=== PATIENT | female | born 1970 | race Hispanic/Latino ===

== ENCOUNTER 2018-05-05 15:08 | Observation (INO) | payer OTHER ==
[2018-05-05 16:08] LABS: Absolute Lymphocytes (CBC) 2.1 K/uL (0.7-4.9); Absolute Monocytes 0.4 K/uL (0.1-1.3); Absolute Neutrophil 4.6 K/uL (1.8-8.0); Basophils % 0.4 % (0-1.3); Eosinophils % 3.1 % (0-4.4); Lymphocytes % 28.1 % (15.3-44.8); MCH 29.1 pg (27.0-35.0); MCV 86.6 fL (80-100); MPV 8.5 fL (7.6-11.3); Monocytes % 5.5 % (3.3-12.3); RBC Red Blood Cell Count 4.39 M/uL (3.86-4.86)
[2018-05-05] MEDS ORDERED: ASPIRIN 81 MG CHEWABLE TABLET ONE (16:11)
[2018-05-05 16:12] LABS: Protime INR 0.97
[2018-05-05] MEDS ORDERED: NA CHLORIDE 0.9% 1,000 ML ONE (16:12)
[2018-05-05 16:33] LABS: ALT/SGPT 44 U/L (12-78); AST/SGOT 21 U/L (15-37); Albumin 3.6 g/dL (3.4-5.0); Alkaline Phosphatase 75 U/L (45-117); BUN Blood Urea Nitrogen 13 mg/dL (7-18); Bicarbonate 24 mmol/L (21-32); Bilirubin Direct < 0.1 mg/dL (0-0.2); Bilirubin Total 0.3 mg/dL (0.2-1.0); Glucose Level 84 mg/dL (74-106); Lipase 117 U/L (73-393); Magnesium 2.3 mg/dL (1.8-2.4); NT PRO-BNP 27 pg/mL (<125); Potassium 3.7 mmol/L (3.5-5.1); Protein, Total 7.5 g/dL (6.4-8.2); Sodium Level 140 mmol/L (136-145); Troponin (Emerg Dept Use Only) < 0.02 ng/mL (0.0-0.045)
--- NOTE | 2018-05-05 16:48 | RAD REPORT ---
EXAM DESCRIPTION: US - Extrem Venous W Compress Jose - 05/05/2018 4:21 pm CLINICAL HISTORY: PAIN Bilateral leg edema and swelling. COMPARISON: No comparisons TECHNIQUE: Real-time sonographic interrogation of the left and right lower extremity deep venous sys tems was performed. FINDINGS: Normal compressibility, flow augmentation, phasic flow and spontaneous flow is identified in both the left and right lower extremity deep venous systems. IMPRESSION: No sonographic evidence of left or right lower extremity deep venous thrombosis.
--- NOTE | 2018-05-05 17:07 | RAD REPORT ---
EXAM DESCRIPTION: CT - Chest For Pe Angio - 05/05/2018 4:53 pm CLINICAL HISTORY: Chest pain. CHEST PAIN COMPARISON: No comparisons TECHNIQUE: CT angiogram of the pulmonary arteries was performed with MIP. All CT scans are performed using dose optimization technique as appropriate and may include automated exposure control or mA/KV adjustment according to patient size. FINDINGS: No evidence of pulmonary thromboembolism. No acute aortic finding demonstrated. Bilateral ground-glass opacities are present likely representing mild interstitial pulmonary edema. L inear subsegmental atelectasis is present in the lingula. No focal consolidation is present. No significant pericardial or pleural fluid. Deformity of the left thoracic cage is present chronic. IMPRESSION: No evidence of pulmonary thromboembolism. Mild interstitial pulmonary edema.
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
[2018-05-05] MEDS ORDERED: ALPRAZOLAM 0.25 MG TABLET PO PRN (18:15)
[2018-05-05] MEDS ORDERED: MORPHINE 4 MG/ML SYR IV PRN (18:15)
[2018-05-05] MEDS ORDERED: ZOLPIDEM TARTRATE 5 MG TABLET PO PRN (18:15)
[2018-05-05] MEDS ORDERED: IBUPROFEN 400 MG TAB PO PRN (18:15)
[2018-05-05] MEDS: ENOXAPARIN 40 MG/0.4 ML SQ SCH (18:30)
[2018-05-05] MEDS ORDERED: ENOXAPARIN 80 MG/0.8 ML SQ ONE (18:44)
[2018-05-05] MEDS ORDERED: METOPROLOL TAR 25 MG TAB ONE (18:44)
[2018-05-05] MEDS ORDERED: CEFTRIAXONE/SWI 1gm 1 GM/10 ML SYR ONE (18:44)
[2018-05-05] MEDS ORDERED: AZITHROMYCIN 500 MG/250 ML BAG ONE (18:45)
[2018-05-05 18:49] LABS: Urine Blood TRACE (NEG); Urine Glucose NEGATIVE (NEG); Urine Protein NEGATIVE (NEG)
[2018-05-05 19:46] LABS: C-Reactive Protein 4.47 mg/L (<3.00); HDL Cholesterol 36 mg/dL (40-60); LDL Cholesterol, Calculated 98 (<130); Troponin I < 0.02 ng/mL (0.0-0.045)
[2018-05-05 20:25] VITALS: BMI 23.9
[2018-05-05 21:26] VITALS: O2SAT 98
[2018-05-06] MEDS: ACETAMINOPHEN 500 MG TAB PO PRN ×4 (00:47→17:25)
[2018-05-06 04:25] LABS: Absolute Monocytes 0.4 K/uL (0.1-1.3); Absolute Neutrophil 3.7 K/uL (1.8-8.0); Basophils % 0.6 % (0-1.3); Eosinophils % 3.9 % (0-4.4); Hematocrit 35.7 % (36.0-45.0); Lymphocytes % 30.9 % (15.3-44.8); MCH 29.1 pg (27.0-35.0); MCV 85.9 fL (80-100); MPV 8.8 fL (7.6-11.3); Monocytes % 6.8 % (3.3-12.3); RBC Red Blood Cell Count 4.15 M/uL (3.86-4.86)
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
--- NOTE | 2018-05-06 07:52 | EKG ---
Test Date: 2018-05-05 Test Time: 15:31:10 French Professor: ISABELLE MEASUREMENT RESULTS: Intervals: Rate: 65 AR: 138 QRSD: 68 QT: 400 QTc: 416 [place]: P: 30 AR: 138 QRS: 6 T: 26 INTERPRETIVE STATEMENTS: Normal sinus rhythm Normal ECG No previous ECG available for comparison Electronically Signed On 05-06-18 07:51:42 CDT by Matthew Valera
[2018-05-06] MEDS ORDERED: INFLUENZA VACCINE (for 3y+) 0.5 ML DOSE IMVAC ONE (08:00)
[2018-05-06] MEDS: ENOXAPARIN 40 MG/0.4 ML SQ SCH (08:26)
[2018-05-06 09:13] LABS: Rheumatoid Factor NEG (NEG)
[2018-05-06] MEDS ORDERED: REGADENOSON 0.4 MG/5 ML SYR IV ONE (09:25)
--- NOTE | 2018-05-06 10:35 | EKG ---
Test Date: 2018-05-06 Test Time: 01:25:37 [place]: RT MEASUREMENT RESULTS: Intervals: Rate: 55 VT: 148 QRSD: 68 QT: 460 QTc: 440 [place]: P: 41 VT: 148 QRS: 17 T: 29 INTERPRETIVE STATEMENTS: Sinus bradycardia Otherwise normal ECG Compared to ECG 05/05/2018 15:31:10 Sinus rhythm no longer present Electronically Signed On 05-06-18 10:34:39 CDT by Matthew Valera
--- NOTE | 2018-05-06 10:52 | ECHO ---
HEIGHT: 6 ft 4 in WEIGHT: 196 lb 14.4 oz DATE OF STUDY: 05/06/[address]: Goran Camarena MD 2-DIMENSIONAL: YES M.MODE: YES DOPPLER: YES COLOR FLOW: YES TDS: NO PORTABLE: NO DEFINITY: NO BUBBLE STUDY: NO DIAGNOSIS: CHEST PAIN CARDIAC HISTORY: CATHERIZATION: NO SURGERY: NO PROSTHETIC VALVE: NO PACEMAKER: NO MEASUREMENTS (cm) DIASTOLIC (NORMALS) SYSTOLIC (NORMALS) IVSd 0.8 (0.6-1.2) LA Diam 3.0 (1.9-4.0) LVEF 80% LVIDd 3.8 (3.5-5.7) LVIDs 2.0 (2.0-3.5) %FS 48% LVPWd 0.8 (0.6-1.2) Ao Diam 2.7 (2.0-3.7) 2 DIMENSIONAL ASSESSMENT: RIGHT ATRIUM: NORMAL LEFT ATRIUM: NORMAL RIGHT VENTRICLE: NORMAL LEFT VENTRICLE: NORMAL TRICUSPID VALVE: NORMAL MITRAL VALVE: NORMAL PULMONIC VALVE: NORMAL AORTIC VALVE: NORMAL PERICARDIAL EFFUSION: NONE AORTIC ROOT: NORMAL LEFT VENTRICULAR WALL MOTION: DOPPLER/COLOR FLOW: MILD TRICUSPID REGURGITATION. NORMAL RIGHT VENTRICULAR SYSTOLIC PRESSURE. COMMENTS: NORMAL 2D ECHOCARDIOGRAM. MILD TRICUSPID REGURGITATION. TECHNOLOGIST: Jun POTTER
--- NOTE | 2018-05-06 13:18 | RAD REPORT ---
EXAM DESCRIPTION: NM - Rest Stress Cardiac Imaging - 05/06/2018 12:52 pm CLINICAL HISTORY: Chest pain COMPARISON: None. TECHNIQUE: The patient was administered 10.8 mCi of Tc 99m Sestamibi prior to resting SPECT imaging of the heart. The patient was then administered 31.9 mCi of Tc 99m Sestamibi following exercise or ph armacologic stress. Multiplanar SPECT images were reviewed. FINDINGS: The end diastolic volume is 87 ml, the end systolic volume is 32 ml, and the ejection frac tion is 63 %. Physiologic distribution of the radiopharmaceutical through the myocardium is noted. No stress induce d ischemic defect is seen to suggest stress induced ischemia. No fixed defect is seen to suggest hibe rnating myocardium or scarred myocardium. IMPRESSION: No stress-induced ischemia. Ventricular volumes and ejection fraction are normal range.
--- NOTE | 2018-05-06 13:29 | TREADPHA ---
DX: 05/06/2018 Date of Study: 05/06/2018 Ht: 6 4 Wt: 196 lb 14.4 oz Consulting Physician: LEONCIO MEDICATIONS: TYLENOL, XANAX, LOVENOX, AMBIEN HISTORY: 47 YEAR OLD FEMALE WITH CHEST PAIN. PHYSICIAL EXAMINATION: RESTING B.P.: 138/77 RESTING H.R.: 54 RESTING EKG: NORMAL PROTOCOL: LEXISCAN EXERCISE TIME: 3:30 B.P. AT PEAK STRESS: 116/85 IMPRESSION: LEXISCAN INJECTED. CARDIOLITE INJECTED PER PROTOCOL. SEE NUCLEAR MEDICINE REPORT. COMPLAINTS OF CHEST PRESSURE 7-10 POST ADMINISTRATION. NO VENTRICULAR TACHYCARDIA OR SUPRAVENTRICULAR TACHYCARDIA NOTED. NON DIAGNOSTIC EKG WITH LEXISCAN.
--- NOTE | 2018-05-06 13:40 | CON ---
Chief Complaint: Chest pain. History Of Present Illness: The patient had several episodes of chest pain; several episodes of waki ng up from sleep; gasping for breath, this goes away in a few seconds. This has been going on for se veral weeks. She has never had myocardial infarction, stroke, or diabetes. Does not use tobacco. N o family history of accelerated atherosclerosis. She takes no medications. She is 5, para 3 , with 2 spontaneous miscarriages. She has had a partial hysterectomy. Physical Examination: Vital signs: The chart says she is 6 feet and 4 inches, but I am certain that is wrong. I think her height is more likely 5 feet and 4 inches, 196 pounds. General: She is obese, alert, oriented, pleasant, not in distress. Lungs: Clear. Heart: Within normal limits. Extremities: Normal. No cyanosis, clubbing, or edema. Distal pulses palpable. Laboratory Data: Her electrocardiogram is normal. CT angiogram of the chest shows no evidence of pu lmonary embolus. There may be mild interstitial edema. Extremity venous study shows no evidence of DVT. Her Laboratory exam reveals a sed rate of 30. Troponins are normal. C-reactive protein is nilda vated. Her triglycerides are elevated. Blood sugars are 84 and 91. Impression: It is conceivable that this is due to ischemic heart disease, but she would be considere d a low risk patient with untreated LDL of 98. No diabetes. No hypertension. No tobacco. So I yamil l recommend we do an echo, pharmacologic stress test to see what we learn from those things and make any further treatment or diagnostic testing plans based on those pre liminary results. KARAN Voice ID: [id number] Report ID: [id number]
[2018-05-06 16:48] VITALS: BP 107/79; TEMP 97.8
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
--- NOTE | 2018-05-08 12:40 | RAD REPORT ---
EXAM DESCRIPTION: Adrián Single View05/05/2018 3:55 pm CLINICAL HISTORY: Chest pain COMPARISON: none FINDINGS: The lungs appear clear of acute infiltrate. The heart is normal size IMPRESSION: No acute abnormalities displayed
== END 2018-05-06 17:50 | disposition home or self-care (01) ==
LOC: ER 15:08 → ERHOLD 17:32 → 4TH 19:45
PROVIDERS: ADMIT Family Medicine; ATTEND Family Medicine
DX: R07.9 Chest pain, unspecified (principal); R09.1 Pleurisy; K21.9 Gastro-esophageal reflux disease without esophagitis; E78.1 Pure hyperglyceridemia; Z86.73 Personal history of transient ischemic attack (TIA), and cerebral infarction without residual deficits; E66.9 Obesity, unspecified; Z68.33 Body mass index [BMI] 33.0-33.9, adult
CPT/HCPCS: 36415; 71045; 71275; 78452; 80048; 80061; 80076; 81003; 83690; 83735; 83880; 84484; 85025; 85610; 85652; 86038; 86140; 86430; 87077; 87086; 87088; 87186; 87804; 93005; 93017; 93306; 93970; 94760; 96365; 96375; 99285; A9500; G0378; J0456; J0696; J1650; J2785; J7030; Q9967

== ENCOUNTER 2018-09-18 09:13 | Emergency (ER) | payer OTHER ==
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
[2018-09-18 11:47] VITALS: BP 124/94; TEMP 98.9; O2SAT 97
== END 2018-09-18 11:39 | disposition home or self-care (01) ==
LOC: ER 09:13
DX: J06.9 Acute upper respiratory infection, unspecified (principal)
CPT/HCPCS: 87070; 87081; 87804; 99283

== ENCOUNTER 2019-05-07 09:38 | Emergency (ER) | payer SELFPAY ==
[2019-05-07] MEDS ORDERED: METHYLPREDNISOLONE 125 MG INJ ONE (10:05)
[2019-05-07] MEDS ORDERED: DIPHENHYDRAMINE 50 MG/ML VIAL ONE (10:05)
[2019-05-07] MEDS ORDERED: FAMOTIDINE 20 MG/2 ML VIAL IV ONE (10:06)
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
[2019-05-07 10:58] VITALS: BP 136/89; TEMP 98.5; O2SAT 98
== END 2019-05-07 10:44 | disposition home or self-care (01) ==
LOC: ER 09:38
DX: L50.1 Idiopathic urticaria (principal)
CPT/HCPCS: 96374; 96375; 99284; J1200; J2930